=== PATIENT | male | born 1945 | race Caucasian/White ===

== ENCOUNTER 2016-09-12 12:33 | Inpatient (IN) | payer OTHER ==
[2016-09-12] MEDS ORDERED: Sodium Chloride 0.9% 1,000 ML PRIMARY IV ONE ×2 (12:39→15:49)
[2016-09-12] MEDS ORDERED: NORMAL SALINE 10 ML SYRINGE FLUSH IVP PRN ×2 (12:39→15:49)
--- NOTE | 2016-09-12 12:43 | EKG ---
[address] [address] Measurements Intervals [place] Rate: 113 P: 40 KS: 143 QRS: -2 QRSD: 93 T: 59 QT: 331 QTc: 398 Interpretive Statements SINUS TACHYCARDIA ABNORMAL RHYTHM ECG No previous ECG available for comparison Electronically Signed On 09-12-16 15:31:31 MDT by Albert Blevins [email or web address]
[2016-09-12 12:49] LABS: HEMATOCRIT 44.9 % (42.0-52.0); HEMOGLOBIN 14.4 g/dL (14.0-18.0); MEAN CORPUSCULAR HEMOGLOBIN 27.4 PG (27-31); MEAN CORPUSCULAR HGB CONC 32.1 g/dL (33-37); MEAN CORPUSCULAR VOLUME 85.4 FL (80-90); MEAN PLATELET VOLUME 11.3 FL (7.4-12.2); RED BLOOD COUNT 5.26 10^6/uL (4.70-6.10)
--- NOTE | 2016-09-12 12:58 | PDOC ---
General Adult HPI - General Chief Complaint: Neurological Complaints Stated Complaint: SEIZURE, CHEST PAIN Date Seen by Provider: 09/12/16 Time Seen by Provider: 12:35 Source: POSITIVE: Patient, EMS Exam Limitations: POSITIVE: No limitations Nurse's Notes Reviewed & Considered: Yes EMS Report Reviewed & Considered: Verbal - History of Present Illness Initial Comment: The patient is a 76-year-old male who is brought to the emergency department by ambulance after having had a seizure. The patient is from [place] and is currently traveling through. [place] when his stated that she looked over and he was slumped down on the ground having what his thought might be seizure activity. This lasted for approximately one or 2 minutes and then the patient was confused. EMS was called and when they arrived the patient was postictal and having a difficult time answering questions. He seemed a little bit combative as well. He was given a half a milligram of Ativan. He did start at one point to complain of some chest pain and a 12-lead EKG was done showing sinus tachycardia with a rate in the 120s and possibly some ST depression in the inferior leads as well as be 3 through V5. He was given aspirin per chest pain protocol as well as Zofran 4 mg for nausea. On arrival the patient is awake and answering questions appropriately. He stated that he remembers hiking and starting to feel lightheaded and feeling like he was going to black out. That is the last thing that he remembers. He denies any current headache, chest pain, numbness or weakness in his arms or legs or change in vision. His states that he has been having some problems with left-sided headache which is not too unusual for him. He has also had some sinus congestion and dizziness that they were attributing to allergies. He reports that he's been having some trouble hearing from his left ear and has been using some eardrops. He did have some indigestion either last night or this morning and took some [place]. He does not have any known history of heart disease. He does take medication for high cholesterol and GERD. He does not use tobacco or alcohol. He does have a history of sleep apnea. He has had no prior seizure history. When EMS first arrived on scene he was fairly tachycardic with a heart rate in the 150s and his oxygen saturations were in the low 90s on room air. He was given a 1 L bolus of normal saline as well as the medications above and his heart rate was coming down in route. After administration of Ativan he was placed on oxygen per nasal cannula. Have you received a tetanus shot in the past 10 years?: Unknown - Patient Home Medications Home Medications: Home Medications Aspirin [Patti Advanced] 500 mg PO PRN PRN 09/12/16 Aspirin/Sod Bicarb/Citric Acid [[place] Original Tab Eff] 1 each PO PRN PRN 09/12/16 Atorvastatin Calcium 20 mg PO DAILY 09/12/16 Dimenhydrinate [Dramamine] 50 mg PO PRN PRN 09/12/16 Diphenhydra/Phenyleph/Acetamin [Benadryl Allergy-Sinus Cplt] 1 each PO PRN PRN 09/12/16 Fluticasone Nasal [place] 0.05% [Flonase Nasal [place] 0.05%] 1 sprays NASAL DAILY 09/12/16 Omeprazole Magnesium 20 mg PO DAILY 09/12/16 Tamsulosin HCl [Flomax] 0.4 mg PO DAILY 09/12/16 - Patient Allergies Allergies/Adverse Reactions: Allergies Allergy/AdvReac Type Severity Reaction Status Date / Time codeine Allergy ITCHING Verified 09/12/16 12:49 Past Medical History Past Medical History Reviewed: Other (please comment) (Written nursing documentation reviewed, pertinent history is in HPI) ROS - Limitations ROS Limitations: No Limitations Constitution: DENIES: Chills, Fever Cardiovascular: REPORTS: Chest Pain (He did report chest pain to the EMS in route however denies current pain.). DENIES: Heart Palpitations, Edema Respiratory: REPORTS: Shortness Of Breath. DENIES: Cough Non Productive, Cough Productive, Hurts To Breathe Neurological: REPORTS: Dizziness (He has been having some dizziness the past couple of days). DENIES: Headache (Denies current headache however had a left- sided headache earlier this morning and took some aspirin, his states he has fairly frequent headaches), Numbness, Weakness Gastrointestinal: REPORTS: Nausea (He did have nausea and was given Zofran per EMS, denies current nausea). DENIES: Abdominal Pain, Vomitting Musculoskeletal: DENIES: Calf Pain, Lower Extremity Swelling Eyes: REPORTS: Denies Symptoms ENT: REPORTS: Denies Symptoms, Congestion Skin: DENIES: Rash General Adult Exam - General Appearance General Appearance: POSITIVE: Alert, Cooperative, No Acute Distress - HEENT HEENT: POSITIVE: Head Inspection Nml, Eyes Inspection Nml, Ears Inspection Nml, Pharynx Inspect. 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 CTA of the chest reveals no evidence of PE, some dependent atelectasis, no coronary calcifications or other abnormalities per radiologist. Lab Results Reviewed: Yes Lab Results:: Laboratory Results 09/12/16 09/12/16 Range/Units 12:44 13:22 WBC 16.26 H (4.8-10.8) 10^3/uL RBC 5.26 (4.70-6.10) 10^6/uL Hgb 14.4 (14.0-18.0) g/dL Hct 44.9 (42.0-52.0) % MCV 85.4 (80-90) FL MCH 27.4 (27-31) PG MCHC 32.1 L (33-37) g/dL RDW Std Deviation 41.0 (39-50) fL RDW Coeff of Sammy 13.2 (11.5-14.5) % Plt Count 258 (140-350) 10*3/uL MPV 11.3 (7.4-12.2) FL Neutrophils % (Manual) 22 L (50-80) % Band Neutrophils % 2 (0-10) % Lymphocytes % (Manual) 67 H (10-50) % Monocytes % (Manual) 9 (0-12) % Eosinophils % (Manual) 0 (0-8) % Basophils % (Manual) 0 (0-1) % Metamyelocytes % 0 % Myelocytes % 0 % Promyelocytes % 0 % Blast Cells 0 (0-1) % WBC Morphology Comment See comments (NORM) Plt Morphology Comment Normal morphology (NORM) RBC Morph Comment Normal morphology (NORM) D-Dimer 7.48 H (0.00-0.59) mg/L Sodium 147 H (135-145) meq/L Potassium 2.9 L (3.8-5.2) meq/L Chloride 105 (98-112) meq/L Carbon Dioxide 10 L (23-33) meq/L Anion Gap 32 H (5-20) BUN 11 (7-22) mg/dL Creatinine 1.4 (0.70-1.50) mg/dL Estimated GFR (>60 ml/min/1.73m(2)) BUN/Creatinine Ratio 7.85 (6-20) Glucose 151 H (78-110) mg/dL Calculated Osmolality 305.0 H (267-292) mOsm/kg Calcium 9.0 (8.7-10.7) mg/dL Magnesium 2.3 (1.6-2.4) mg/dL Total Bilirubin 0.5 (0.3-1.2) mg/dL AST 57 (21-57) IU/L ALT 56 (21-72) IU/L Alkaline Phosphatase 112 (38-126) IU/L Total Creatine Kinase 93 (55-170) IU/L CK-MB (CK-2) 0.71 (0.00-5.00) NG/ML Troponin I < 0.012 (< 0.040) ng/mL C-Reactive Protein < 0.5 (0.0-0.9) mg/dL NT-Pro-B Natriuret Pep 29.6 (0-450) PG/ML Total Protein 7.8 (6.1-8.0) g/dL Albumin 4.9 H (3.5-4.8) g/dL Globulin 2.9 (2.50-4.10) g/dL Albumin/Globulin Ratio 1.60 (1.3-2.0) mg/g TSH 4.80 H (0.2700-4.2000) uIU/mL Free T4 1.04 (0.93-1.71) ng/dL EKG Interpreted/Reviewed By Me:: Yes EKG Interpretation:: POSITIVE: Normal Sinus Rhythm, Normal Rate, Normal QRS, Normal ST/T (There is some mild ST depression in V3 through V5 which is less prominent than on the field EKG and no ST depression or elevation in the inferior leads on current EKG, no old EKGs available for comparison) - Patient's Progress MDM / ED Course: By the time the patient arrived here in the emergency department he was feeling significantly better than when EMS first arrived. He continued to improve while here in the emergency department. He remained asymptomatic other than some dizziness when he moves around. His EKG done here showed a normal sinus rhythm with nonspecific ST depression in V3 through V5 which appeared to have improved from his EKG in the field. He had received aspirin and Zofran per EMS prior to arrival as well as Ativan 0.5 mg IV. His lab work reveals some electrolyte abnormalities with a sodium of 147 and a potassium of 2.9. He also has a lymphocytosis and a white count of 16,000. His d-dimer was elevated at 7.5. Head CT shows small vessel ischemic changes with no acute findings per radiologist. His CTA of the chest reveals no evidence of PE with dependent atelectasis and no other findings per radiologist. At this point it is questionable whether the patient had a seizure or whether he actually just had a syncopal event. It seems most likely that this is a syncope rather than seizure. The patient does exhibit some electrolyte abnormalities and has improved after administration of fluids here in the emergency department. Decision was made to admit the patient for further monitoring. The patient and his are in agreement with this plan and Dr. Crain has agreed to admit the patient. - Consult Counseled: POSITIVE: Patient, Family, RE: Lab Results, RE: Radiology Results, RE : DX Patient Care Time - Estimated PCT Patient Care Time (In Minutes): 45 Vital Signs - Recent Vital Signs Vital Signs: Vital Signs (Last 8 hours) Temp Pulse Pulse Resp BP Pulse Ox 09/12/16 14:29 97.2 F 09/12/16 13:07 110 H 09/12/16 12:44 113 H 09/12/16 12:33 97.3 F 110 H 17 119/67 90 - VS Reviewed Vital Signs Reviewed: Yes Discharge Clinical Impression: Syncope, Dehydration, Hypernatremia, Hypokalemia Discharge Disposition: Admit to Inpatient Condition: Fair Date Decision to Admit to Inpatient: 09/12/16 Time Decision to Admit to Inpatient: 14:25
[2016-09-12 13:00] LABS: BUN/CREATININE RATIO 7.85 (6-20); MAGNESIUM 2.3 mg/dL (1.6-2.4); SERUM ALBUMIN 4.9 g/dL (3.5-4.8)
[2016-09-12 13:11] LABS: CREATINE KINASE MB 0.71 NG/ML (0.00-5.00)
[2016-09-12 13:12] LABS: TROPONIN I < 0.012 ng/mL (< 0.040)
[2016-09-12 13:21] LABS: PLATELET MORPHOLOGY COMMENT NORMAL MORPHOLOGY (NORM); RBC MORPHOLOGY COMMENT NORMAL MORPHOLOGY (NORM)
[2016-09-12 13:22] LABS: BAND NEUTROPHILS % 2 % (0-10); BASOPHILS % (MANUAL) 0 % (0-1); EOSINOPHILS % (MANUAL) 0 % (0-8); LYMPHOCYTES % (MANUAL) 67 % (10-50); METAMYELOCYTES % 0 %; MONOCYTES % (MANUAL) 9 % (0-12); MYELOCYTES % 0 %; NEUTROPHILS % (MANUAL) 22 % (50-80); PROMYELOCYTES % 0 %; WBC MORPHOLOGY COMMENT SEE COMMENTS (NORM)
[2016-09-12 13:59] LABS: FREE T4 (FREE THYROXINE) 1.04 ng/dL (0.93-1.71)
--- NOTE | 2016-09-12 14:26 | DI ---
CT HEAD SCAN WITHOUT IV CONTRAST, 09/12/2016 12:40 PM : Clinical History: Seizure. Previous Exam: None at this facility. Scans are obtained from the foramen magnum to the vertex without IV contrast. The 4th, 3rd, and lateral ventricles are of normal size, shape, position, and contour for the patient 's age. There are lucencies through the inferior aspect of both basal ganglia with additional lucenci es extending superiorly into the periventricular white matter in the watershed territory, probably re presenting small vessel ischemic change although the usual periventricular white matter lucencies in the frontal and occipital horns is not present. There is only mild cerebral atrophy. There are no ext racerebral mantles or shift of the midline structures. Bone window evaluation is normal. The paranasa l sinuses are normal. READIN. There are bilateral lucencies in the centrum semiovale and toward the inferior aspect of both bas al ganglia probably representing small vessel ischemic disease. There is no hemorrhagic or bland infa rct. 2. Mild cerebral atrophy.
[2016-09-12] MEDS ORDERED: D5-1/2NS + 20mEq KCL 1,000 ML PRIMARY IV ONE (14:29)
--- NOTE | 2016-09-12 14:44 | DI ---
CT ANGIOGRAM OF THE CHEST, 09/12/2016 1:18 PM : Clinical History: Chest pain. Shortness of breath. Elevated D-dimer test. This history was related to me by the attending ER physician. Previous Exam: None at this facility. Scans are performed from the base of the neck to the lower lung bases following IV administration of 65 mL of Isovue 300. Proprietary automated bolus tracking software was not used to verify the timing of the injection. The base of the neck and thoracic inlet are normal. There are no abnormal axillary, supraclavicular, mediastinal, or hilar nodes. The heart is normal. The pulmonary arteries are normal. There is no pulm onary arterial hypertension. There is no evidence of pulmonary embolism or pulmonary infarction. The lungs are clear and there are no pulmonary nodules or masses. Both lungs show atelectatic changes in the dependent portions posteriorly. Both adrenal glands and the spleen and visualized portions of the liver and pancreas are normal. READIN. Normal CTA of the chest. There are no pulmonary emboli or pulmonary infarcts. 2. The remainder the study is normal.
[2016-09-12] MEDS ORDERED: cefTRIAXone Inj 2 GM in Sodium Chloride 0.9% 100 ML IV SCH (15:45)
--- NOTE | 2016-09-12 15:48 | PDOC ---
History and Physical - History of Present Illness History of Present Illness: This very nice 76-year-old gentleman past medical history significant for frequent sinus infections. Traveling from [place] the left Monday they made it to [place] the patient was experiencing some dizziness at that time improved. Then drove to [place] Monday still have a more dizziness and the he blames on his sinus infection since it is painful on his left maxillary sinus. Then drove to [facility] in [place] around noon get out of the [place] felt dizzy with the flashes and then had a syncopal episode ambulance was called. This was witnessed by the patient did not have any chest pain or shortness of breath before he passed out initially they thought he was having a seizure but this was not the case his total CKs were normal was given a liter bolus in the ER was found to be tachycardic and is now much better upon my evaluation. Was also found to be dehydrated and with electrolyte imbalance and admitted for further studies Past Medical History Medical History: Chronic sinus infection, hypercholesterolemia, GERD Tobacco Use: Never Smoker Substance Use Type: None Alcohol Use: None Medication / Allergies Home Medications: Home Medications Medication Instructions Recorded Confirmed Type Aspirin [Patti Advanced] 500 mg PO PRN PRN 09/12/16 09/12/16 History Aspirin/Sod Bicarb/Citric Acid 1 each PO PRN PRN 09/12/16 09/12/16 History [Alena-[place] Original Tab Eff] Atorvastatin Calcium 20 mg PO DAILY 09/12/16 09/12/16 History Dimenhydrinate [Dramamine] 50 mg PO PRN PRN 09/12/16 09/12/16 History Diphenhydra/Phenyleph/Acetamin 1 each PO PRN PRN 09/12/16 09/12/16 History [Benadryl Allergy-Sinus Cplt] Fluticasone Nasal [place] 0.05% 1 sprays NASAL DAILY 09/12/16 09/12/16 History [Flonase Nasal [place] 0.05%] Omeprazole Magnesium 20 mg PO DAILY 09/12/16 09/12/16 History Tamsulosin HCl [Flomax] 0.4 mg PO DAILY 09/12/16 09/12/16 History Allergies/Adverse Reactions: Allergies Allergy/AdvReac Type Severity Reaction Status Date / Time codeine Allergy ITCHING Verified 09/12/16 12:49 Review of Systems - Review of Systems All Systems: Reviewed & No Additional Complaints Except as Stated - Constitutional Constitutional: REPORTS: General Health Fair - Integumentary Integumentary: DENIES: Negative System Review, Rash, Superficial Wound, Laceration, Puncture Wound, Foreign Body, Itching, Dryness, Ulcers, Color Changes, Moles, Hair Loss, Hirsutism, Other, See HPI - Ear/Nose Exam Ear/Nose Exam: REPORTS: Sinus Pain, Congestion - Cardiovascular Cardiovascular: DENIES: Negative System Review, Chest Pain, Edema, Syncope, Palpitations, Orthopnea, Paroxysmal Nocturnal Dyspnea, Other, See HPI - Gastrointestinal Gastrointestinal / Abdominal: DENIES: Negative System Review, Nausea, Vomiting, Diarrhea, Constipation, Abdominal Pain, Bloody Stool, Poor Appetite, Heartburn, Regurgitation, Bloating, Lactose Intolerance, Melena, Bright Red Blood Per Rectum, Other, See HPI - Neurological Neurologic: REPORTS: Dizziness Exam - Vitals Vital Signs: Vital Signs Temperature 97.2 F Temperature Source Temporal Artery Scan Pulse Rate [Telemetry] 110 Pulse Rate 110 Respiratory Rate 17 Blood Pressure [Left Arm] 119/67 Pulse Ox 90 Oxygen Flow Rate 2 Oxygen Delivery Method Nasal Cannula Height 5 ft 6 in Weight 63.503 kg - General General Appearance: POSITIVE: No Acute Distress, Cooperative - Head Head Exam: POSITIVE: Normal Inspection, Normocephalic, Atraumatic - Eye Eye Exam: POSITIVE: Normal Appearance, PERRL, EOMI - Respiratory Respiratory Exam: POSITIVE: Clear to Auscultation - Bilaterally, Breathing Non Labored. NEGATIVE: Rales, Rhonci - Cardiovascular Cardiovascular Exam: POSITIVE: RRR, No Murmur, No Clicks, No Gallops - GI/Abdominal GI/Abdominal Exam: POSITIVE: Normal Bowel Sounds, Non Tender, Non Distended, Soft - Extremities Extremities Exam: POSITIVE: Normal Capillary Refill, No Clubbing Present, No Edema Present - Neurological Neurological Exam: POSITIVE: Alert, Oriented x 3, No Facial Droop, Speech Intact / Clear - Psychiatric Psychiatric Exam: POSITIVE: Normal Affect, Normal Mood Results - Labs CBC and BMP: 09/12/16 12:44 09/12/16 12:44 Labs - Last 24 Hours: Laboratory Results 09/12/16 09/12/16 Range/Units 12:44 13:22 WBC 16.26 H (4.8-10.8) 10^3/uL RBC 5.26 (4.70-6.10) 10^6/uL Hgb 14.4 (14.0-18.0) g/dL Hct 44.9 (42.0-52.0) % MCV 85.4 (80-90) FL MCH 27.4 (27-31) PG MCHC 32.1 L (33-37) g/dL RDW Std Deviation 41.0 (39-50) fL RDW Coeff of Sammy 13.2 (11.5-14.5) % Plt Count 258 (140-350) 10*3/uL MPV 11.3 (7.4-12.2) FL Neutrophils % (Manual) 22 L (50-80) % Band Neutrophils % 2 (0-10) % Lymphocytes % (Manual) 67 H (10-50) % Monocytes % (Manual) 9 (0-12) % Eosinophils % (Manual) 0 (0-8) % Basophils % (Manual) 0 (0-1) % Metamyelocytes % 0 % Myelocytes % 0 % Promyelocytes % 0 % Blast Cells 0 (0-1) % WBC Morphology Comment See comments (NORM) Plt Morphology Comment Normal morphology (NORM) RBC Morph Comment Normal morphology (NORM) D-Dimer 7.48 H (0.00-0.59) mg/L Sodium 147 H (135-145) meq/L Potassium 2.9 L (3.8-5.2) meq/L Chloride 105 (98-112) meq/L Carbon Dioxide 10 L (23-33) meq/L Anion Gap 32 H (5-20) BUN 11 (7-22) mg/dL Creatinine 1.4 (0.70-1.50) mg/dL Estimated GFR (>60 ml/min/1.73m(2)) BUN/Creatinine Ratio 7.85 (6-20) Glucose 151 H (78-110) mg/dL Calculated Osmolality 305.0 H (267-292) mOsm/kg Calcium 9.0 (8.7-10.7) mg/dL Magnesium 2.3 (1.6-2.4) mg/dL Total Bilirubin 0.5 (0.3-1.2) mg/dL AST 57 (21-57) IU/L ALT 56 (21-72) IU/L Alkaline Phosphatase 112 (38-126) IU/L Total Creatine Kinase 93 (55-170) IU/L CK-MB (CK-2) 0.71 (0.00-5.00) NG/ML Troponin I < 0.012 (< 0.040) ng/mL C-Reactive Protein < 0.5 (0.0-0.9) mg/dL NT-Pro-B Natriuret Pep 29.6 (0-450) PG/ML Total Protein 7.8 (6.1-8.0) g/dL Albumin 4.9 H (3.5-4.8) g/dL Globulin 2.9 (2.50-4.10) g/dL Albumin/Globulin Ratio 1.60 (1.3-2.0) mg/g TSH 4.80 H (0.2700-4.2000) uIU/mL Free T4 1.04 (0.93-1.71) ng/dL Assessment and Plan - Patient Problems (1) Dehydration Status: Acute (2) Hypernatremia Status: Acute (3) Hypokalemia Status: Acute (4) Syncope Status: Acute - Assessment / Plan Additional Assessment/Plan Details: We will admit the patient to the medical floor we will hydrated with D5 half- normal saline we will repeat a CMP at that 9 PM his first 2 hours will be at 250 an hour and will schedule back to 75 an hour repeat labs in the morning as well because of his sinus pressure on the left maxillary sinus I will treat with Rocephin this could be all the cause of his syncopal episode and dizziness combined with dehydration and electrolyte imbalance I did tell the patient that we should do an echo for completeness of workup but this cannot be done until Monday morning since we don't have a tech at the facility he tends to agree but he said he will see how he feels tomorrow. Continue potassium replacement as well I will also check a magnesium level and replace if necessary
[2016-09-12] MEDS ORDERED: D5-1/2NS 1,000 ML PRIMARY IV SCH (15:49)
[2016-09-12] MEDS ORDERED: ONDANSETRON 4 MG/2 ML VIAL IVP PRN (15:49)
[2016-09-12] MEDS ORDERED: LIDOCAINE W/ SODIUM BICARB 0.5 ML SYR SUBD PRN (15:49)
[2016-09-12] MEDS ORDERED: ASPIRIN 500 MG PO PRN (15:49)
[2016-09-12 19:08] LABS: BLOOD UREA NITROGEN 8 mg/dL (7-22); BUN/CREATININE RATIO 8.88 (6-20); CALCIUM 7.6 mg/dL (8.7-10.7); EST GLOMERULAR FILTRATION > 60 (>60 ml/min/1.73m(2)); SERUM ALBUMIN 3.2 g/dL (3.5-4.8)
[2016-09-12] MEDS: ATORVASTATIN 20 MG TABLET PO SCH (20:44)
[2016-09-12] MEDS: TAMSULOSIN 0.4 MG CAPSULE PO SCH (20:44)
[2016-09-12] MEDS: D5W 1,000 ML PRIMARY IV SCH (22:36)
[2016-09-13] MEDS: D5W 1,000 ML PRIMARY IV SCH ×5 (00:49→09:52)
[2016-09-13 04:25] LABS: BASOPHILS # (AUTO) 0.04 10*3/UL; BASOPHILS % (AUTO) 0.7 % (0-1); EOSINOPHILS # (AUTO) 0.06 10*3/UL; HEMATOCRIT 35.6 % (42.0-52.0); HEMOGLOBIN 11.7 g/dL (14.0-18.0); MEAN CORPUSCULAR HEMOGLOBIN 27.2 PG (27-31); MEAN CORPUSCULAR HGB CONC 32.9 g/dL (33-37); MEAN CORPUSCULAR VOLUME 82.8 FL (80-90); MEAN PLATELET VOLUME 10.2 FL (7.4-12.2); MONOCYTES # (AUTO) 0.69 10*3/UL (0.3-0.8); MONOCYTES % (AUTO) 11.9 % (5-15); NEUTROPHILS # (AUTO) 3.51 10*3/UL; NEUTROPHILS % (AUTO) 60.3 % (50-80)
[2016-09-13 04:32] LABS: BLOOD UREA NITROGEN 6 mg/dL (7-22); CALCIUM 7.8 mg/dL (8.7-10.7); EST GLOMERULAR FILTRATION > 60 (>60 ml/min/1.73m(2))
[2016-09-13 04:38] LABS: PLATELET MORPHOLOGY COMMENT NORMAL MORPHOLOGY (NORM); RBC MORPHOLOGY COMMENT NORMAL MORPHOLOGY (NORM); WBC MORPHOLOGY COMMENT NORMAL MORPHOLOGY (NORM)
[2016-09-13] MEDS: OMEPRAZOLE 20 MG CAPSULE PO SCH (07:25)
[2016-09-13] MEDS: POTASSIUM CHLORIDE 20 MEQ TAB PO SCH ×2 (09:07→20:28)
[2016-09-13] MEDS: FLUTICASONE PROPIONATE 16 GRAM (120 SPRAYS / BOTTLE) ENOS SCH (09:07)
[2016-09-13] MEDS: ENOXAPARIN SODIUM 40 MG/0.4 ML SYRINGE SUBCUT SCH (09:07)
--- NOTE | 2016-09-13 10:30 | PDOC(PROG) ---
Interval History: Patient is doing much better this morning he still achy specifically and is between his cervical spine and thoracic spine he has some point tenderness when he fell yesterday with [place] syncopal episode [place] he thinks he might have hit it but does not remember. He will like to have it checked out and looked that I told him I would order MRIs of his thoracic and cervical spine for disc herniation which would be hard to see on x-ray he agrees. What is bothering him now as his sinuses which we are treating with Rocephin. Otherwise denies chest pain nausea and vomiting Objective : Data - Labs CBC and BMP: 09/13/16 04:13 09/13/16 04:13 Labs - Last 24 Hours: Laboratory Results 09/12/16 09/12/16 09/13/16 Range/Units 15:41 18:56 04:13 WBC 5.82 (4.8-10.8) 10^3/uL RBC 4.30 L (4.70-6.10) 10^6/uL Hgb 11.7 L (14.0-18.0) g/dL Hct 35.6 L (42.0-52.0) % MCV 82.8 (80-90) FL MCH 27.2 (27-31) PG MCHC 32.9 L (33-37) g/dL RDW Std Deviation 39.2 (39-50) fL RDW Coeff of Sammy 13.3 (11.5-14.5) % Plt Count 172 (140-350) 10*3/uL MPV 10.2 (7.4-12.2) FL Immature Gran % (Auto) 0.3 (0-5) % Neut % (Auto) 60.3 (50-80) % Lymph % (Auto) 25.8 (10-50) % [place] % (Auto) 11.9 (5-15) % Eos % (Auto) 1.0 (0-8) % Baso % (Auto) 0.7 (0-1) % Immature Gran # (Auto) 0.02 10*3/UL Neut # (Auto) 3.51 10*3/UL Lymph # (Auto) 1.50 10*3/uL [place] # (Auto) 0.69 (0.3-0.8) 10*3/UL Eos # (Auto) 0.06 10*3/UL Baso # (Auto) 0.04 10*3/UL WBC Morphology Comment Normal morphology (NORM) Plt Morphology Comment Normal morphology (NORM) RBC Morph Comment Normal morphology (NORM) Sodium 139 138 (135-145) meq/L Potassium 3.7 L 3.6 L (3.8-5.2) meq/L Chloride 108 107 (98-112) meq/L Carbon Dioxide 24 25 (23-33) meq/L Anion Gap 7 6 (5-20) BUN 8 6 L (7-22) mg/dL Creatinine 0.9 0.8 (0.70-1.50) mg/dL Estimated GFR > 60 > 60 (>60 ml/min/1.73m(2)) BUN/Creatinine Ratio 8.88 7.50 (6-20) Glucose 166 H 101 (78-110) mg/dL Calculated Osmolality 289.0 283.0 (267-292) mOsm/kg Calcium 7.6 L 7.8 L (8.7-10.7) mg/dL Magnesium 2.2 (1.6-2.4) mg/dL Total Bilirubin 0.2 L (0.3-1.2) mg/dL AST 26 (21-57) IU/L ALT 48 (21-72) IU/L Alkaline Phosphatase 71 (38-126) IU/L Total Protein 5.5 L (6.1-8.0) g/dL Albumin 3.2 L (3.5-4.8) g/dL Globulin 2.3 L (2.50-4.10) g/dL Albumin/Globulin Ratio 1.30 (1.3-2.0) mg/g Objective : Exam - General General Appearance: Cooperative - Head Head Exam: Normal Inspection, Normocephalic, Atraumatic - Eye Eye Exam: PERRL, EOMI - Respiratory Respiratory Exam: Clear to Auscultation - Bilaterally, Breathing Non Labored, Normal To Percussion, Normal to Percussion and Palpation - Cardiovascular Cardiovascular Exam: RRR, No Murmur, No Clicks, No Gallops - GI/Abdominal GI/Abdominal Exam: Non Tender, Non Distended, Soft - Extremities Extremities Exam: No Clubbing Present, No Edema Present - Back Back Exam: Vertebral Tenderness - Neurological Neurological Exam: Alert, Oriented x 3, No Facial Droop, Speech Intact / Clear, Moves All Extremities Equally - Psychiatric Psychiatric Exam: Normal Affect, Normal Mood Assessment and Plan - Patient Problems (1) Dehydration Current Visit: Yes Status: Acute Comment: Improved off IV fluids now (2) Hypernatremia Current Visit: Yes Status: Acute Comment: Resolved patient received the 2 hours of D5 half-normal saline and then 75 an hour and then stopped this a.m. with potassium (3) Hypokalemia Current Visit: Yes Status: Acute Comment: Resolving continue with by mouth (4) Syncope Current Visit: Yes Status: Acute Comment: No further syncopal episodes no telemetry changes (5) Neck pain Current Visit: Yes Status: Acute Comment: Patient sustained a fall yesterday at [employer] on the rocks he has some point tenderness on his thoracic spine we will order MRIs of cervical and thoracic spine
[2016-09-13] MEDS ORDERED: LORazepam 2 MG/1 ML VIAL IVP ONE (11:52)
[2016-09-13] MEDS ORDERED: LORazepam 2 MG/1 ML VIAL ONE (11:54)
--- NOTE | 2016-09-13 14:33 | DI ---
MRI THORACIC SPINE SCAN, 09/13/2016 10:24 AM: Clinical History: Thoracic back pain secondary to a fall. Previous Exam: None. Technique: Sagittal T1 and T2 weighted and STIR scans are supplemented with an axial angulated T1 and T2 weighted scans between the C7-T1 and the T12-L1 disc spaces. There is a sharp angulation along the anterior aspect of the body of T3 and there is anterior wedging primarily involving the superior endplate of the body of T5. Both of these areas show increased sign al intensity indicating they represent acute or subacute compression fractures. There is no extension of activity into the pedicles at T3. There is slight increased signal intensity in the left pedicle at T5. No other abnormal bone signal pattern is noted. The thoracic disc spaces are of normal height and the disc spaces between T2-T3 and T6-7 are of normal signal intensity in the remaining disc space s show desiccation change. The thoracic cord and the conus medullaris are normal. The disc spaces bet ween and T3-4 are normal. T4-5 has a midline disc bulge without canal or neural foraminal stenosis. T he remaining thoracic disc spaces from T5-6 to T12-L1 are normal. There are no other extradural lesio ns. There are no intradural extramedullary or intramedullary lesions. Readin. There are either acute or subacute compression fractures of T3 and T5 with a nondisplaced fractur e through the left pedicle of T5. The disc space at T4-5 has a midline focal bulge but there is no ca nal or neural foraminal stenosis. 2. The disc spaces from C7-T1 through T3-4 and from T5-6 through T12-L1 are normal.
--- NOTE | 2016-09-13 14:37 | DI ---
MRI CERVICAL SPINE SCAN, 09/13/2016 10:24 AM: Clinical History: Neck pain secondary to a fall. Previous Exam: None. Sequences: Sagittal T1and T2 weighted and STIR. Axial T2 PLUS and FE 3D DUAL. Coronal T1 scans throug h the upper cervical spine. The patient is status post anterior fusions at C4-5 and C5-6 and both fusions are solid. The remainin g cervical vertebral bodies are of normal height and size. The remaining cervical disc spaces are of normal height and show desiccation change. The cervical cord and cerebellar tonsils are normal. The C 2-3 disc space is normal. C3-4 has a central bulging but not herniated disc without canal or neural f oraminal stenosis. There is no canal or neural foraminal stenosis at the level of C4-5 and C5-6 where the fusions are present. C6-7 has a central bulging but not herniated disc without canal or neural f oraminal stenosis. C7-T1 through T3-4 disc spaces are normal. There is no abnormally increased signal intensity on the T2-weighted or STIR sequences to indicate a fracture in the cervical spine. There i s slight increased signal intensity in the superior endplate of T3 with slight angulation anteriorly in the body. This would be consistent with a compression fracture that is either acute or subacute. Readin. There is a compression fracture at T3 involving the superior endplate that either is acute or sub acute. There is loss of height less than 10%. 2. Status post anterior fusions at C4-5 and C5-6 and these fusions are solid. There is no canal or n eural foraminal stenosis at either level. 3. C3-4 and C6-7 have bulging but not herniated discs without canal or neural foraminal stenosis. 4. The C2-3 and the C7-T1 through T3-4 disc spaces are normal.
[2016-09-13] MEDS: cefTRIAXone Inj 2 GM in Sodium Chloride 0.9% 100 ML IV SCH (16:17)
[2016-09-13] MEDS: ATORVASTATIN 20 MG TABLET PO SCH (20:28)
[2016-09-13] MEDS: TAMSULOSIN 0.4 MG CAPSULE PO SCH (20:28)
[2016-09-14] MEDS: OMEPRAZOLE 20 MG CAPSULE PO SCH (07:00)
[2016-09-14] MEDS: ENOXAPARIN SODIUM 40 MG/0.4 ML SYRINGE SUBCUT SCH (09:05)
[2016-09-14] MEDS: POTASSIUM CHLORIDE 20 MEQ TAB PO SCH ×2 (09:05→21:33)
[2016-09-14] MEDS: FLUTICASONE PROPIONATE 16 GRAM (120 SPRAYS / BOTTLE) ENOS SCH (09:05)
[2016-09-14 10:21] LABS: BLOOD UREA NITROGEN 11 mg/dL (7-22); CALCIUM 8.9 mg/dL (8.7-10.7); EST GLOMERULAR FILTRATION > 60 (>60 ml/min/1.73m(2)); SERUM ALBUMIN 3.6 g/dL (3.5-4.8)
--- NOTE | 2016-09-14 11:10 | PDOC(PROG) ---
Interval History: Patient is feeling much better today things have improved much feels stronger and eating and drinking. Drinking appropriately this left sinus pressure is less had his echo this morning does not feel dizzy no nausea no vomiting no chest pain his back pain is improved as well Objective : Data - Labs CBC and BMP: 09/13/16 04:13 09/14/16 09:22 Labs - Last 24 Hours: Laboratory Results 09/14/16 Range/Units 09:22 Sodium 140 (135-145) meq/L Potassium 3.9 (3.8-5.2) meq/L Chloride 105 (98-112) meq/L Carbon Dioxide 27 (23-33) meq/L Anion Gap 8 (5-20) BUN 11 (7-22) mg/dL Creatinine 1.0 (0.70-1.50) mg/dL Estimated GFR > 60 (>60 ml/min/1.73m(2)) BUN/Creatinine Ratio 11.00 (6-20) Glucose 103 (78-110) mg/dL Calculated Osmolality 288.0 (267-292) mOsm/kg Calcium 8.9 (8.7-10.7) mg/dL Total Bilirubin 0.6 (0.3-1.2) mg/dL AST 34 (21-57) IU/L ALT 53 (21-72) IU/L Alkaline Phosphatase 96 (38-126) IU/L Total Protein 6.1 (6.1-8.0) g/dL Albumin 3.6 (3.5-4.8) g/dL Globulin 2.5 (2.50-4.10) g/dL Albumin/Globulin Ratio 1.40 (1.3-2.0) mg/g Objective : Exam - General General Appearance: Cooperative - Head Head Exam: Normal Inspection, Normocephalic, Atraumatic - Eye Eye Exam: Normal Appearance Additional Eye Exam Details: Less painful left maxillary sinus - Respiratory Respiratory Exam: Clear to Auscultation - Bilaterally, Breathing Non Labored, Normal To Percussion, Normal to Percussion and Palpation - Cardiovascular Cardiovascular Exam: RRR, No Murmur, No Clicks, No Gallops - GI/Abdominal GI/Abdominal Exam: Non Distended, Soft - Extremities Extremities Exam: No Clubbing Present, No Edema Present - Neurological Neurological Exam: Alert, Oriented x 3, No Facial Droop, Speech Intact / Clear, Moves All Extremities Equally - Psychiatric Psychiatric Exam: Normal Affect, Normal Mood Assessment and Plan - Patient Problems (1) Dehydration Current Visit: Yes Status: Resolved Comment: Resolved (2) Hypernatremia Current Visit: Yes Status: Acute Comment: Within normal limits now (3) Hypokalemia Current Visit: Yes Status: Resolved (4) Syncope Current Visit: Yes Status: Resolved Comment: Most likely a combination of dehydration and electrolyte imbalance imbalance and acute sinus with the high altitude and hiking in the middle of the day with 90 weather most likely vasovagal echo is pending. Patient will stay to get his IV antibiotics tomorrow for 3 days I will give him a prescription for Augmentin 875 twice a day for a total of 10 more days (5) Neck pain Current Visit: Yes Status: Acute Comment: MRI cervical spine MRI thoracic spine were done discussed with neurosurgeon nothing to do Cecil Johnson at [facility] [place]
[2016-09-14] MEDS: cefTRIAXone Inj 2 GM in Sodium Chloride 0.9% 100 ML IV SCH (15:28)
[2016-09-14] MEDS: ATORVASTATIN 20 MG TABLET PO SCH (21:33)
[2016-09-14] MEDS: TAMSULOSIN 0.4 MG CAPSULE PO SCH (21:33)
[2016-09-15] MEDS: OMEPRAZOLE 20 MG CAPSULE PO SCH (06:52)
[2016-09-15 06:56] VITALS: RESP 20; TEMP 97.8
--- NOTE | 2016-09-15 08:50 | DCSUMMARY ---
Hospitalization Summary Admit Date: 09/12/16 Discharge Date: 09/15/16 Hospital Course: Discharge diagnoses 1. Syncope less likely seizure 2. Hypernatremia 3. Hypokalemia 4. Increased anion gap metabolic acidosis 5. History of sinusitis 6. GERD 7. Hypercholesterolemia 8. History of neck surgery Hospital course This is a 71 years old male with medical history significant for history of sinusitis, hypercholesterolemia, GERD who was brought to the hospital after he passed out. The patient is from [place] and was traveling through. He said the he was at [employer] and then he passed out. He did say that he had dizziness and he blamed that on a sinus infection more on the left maxillary sinus also had some trouble hearing on the left ear he took Dramamine. There was no chest pain or shortness of breath before he passed out. The mentioned there may be some movements in both hands but that didn't last long and then he stayed still there was no history of biting his tongue there is no history of losing control over his bowel or bladder. There was a city bailiff in the area they moved him to a shaded area until the medics arrived. Initially he was not with it for a few minutes and then they gave him fluids and they brought him to the ER and he was evaluated and found to have hyponatremia, hypokalemia and increased anion gap metabolic acidosis. CK was normal though. The impression is that he had more like a syncopal episode rather than a seizure. He was giving fluids and started on antibiotics. A CT of the head was negative for acute stroke. Question small vessel ischemic disease. He had a CTA of the chest was negative for PE. Had an MRI of the neck and the thoracic area which showed either acute or subacute compression fractures of T3 and T5 with nondisplaced fracture through the left pedicle of T5. The disc spaces from C7-T1 are normal. With fluids and antibiotics for possible sinusitis he felt gradually better. He did have an echocardiogram which was normal per discussion with the electrical integrator. I saw him on the day of discharge he was doing better and there is no chest pain or no shortness of breath. Still complained from drainage to the back of his throat. Some tenderness in the left maxillary area. He denied history of diarrhea or vomiting prior to the incident. He did say that he had blood test done before he traveled and they were normal. Impression is still that probably this is more like a syncope of than a seizure. I think we can discharge him home finish the course of antibiotic that was started and was put also on Flonase. I discharge him on a few days of potassium also. I do suggest that he follow-up with his primary and consider having a stress test to complete the workup. His exam was not remarkable apart from minimal tenderness in the left maxillary area. Laboratory Results 09/12/16 09/12/16 09/12/16 Range/Units 12:44 13:22 15:41 WBC 16.26 H (4.8-10.8) 10^3/uL RBC 5.26 (4.70-6.10) 10^6/uL Hgb 14.4 (14.0-18.0) g/dL Hct 44.9 (42.0-52.0) % MCV 85.4 (80-90) FL MCH 27.4 (27-31) PG MCHC 32.1 L (33-37) g/dL RDW Std Deviation 41.0 (39-50) fL RDW Coeff of Sammy 13.2 (11.5-14.5) % Plt Count 258 (140-350) 10*3/uL MPV 11.3 (7.4-12.2) FL Immature Gran % (Auto) (0-5) % Neut % (Auto) (50-80) % Lymph % (Auto) (10-50) % Sebastian % (Auto) (5-15) % Eos % (Auto) (0-8) % Baso % (Auto) (0-1) % Immature Gran # (Auto) 10*3/UL Neut # (Auto) 10*3/UL Lymph # (Auto) 10*3/uL Sebastian # (Auto) (0.3-0.8) 10*3/UL Eos # (Auto) 10*3/UL Baso # (Auto) 10*3/UL Neutrophils % (Manual) 22 L (50-80) % Band Neutrophils % 2 (0-10) % Lymphocytes % (Manual) 67 H (10-50) % Monocytes % (Manual) 9 (0-12) % Eosinophils % (Manual) 0 (0-8) % Basophils % (Manual) 0 (0-1) % Metamyelocytes % 0 % Myelocytes % 0 % Promyelocytes % 0 % Blast Cells 0 (0-1) % WBC Morphology Comment See comments (NORM) Plt Morphology Comment Normal morphology (NORM) RBC Morph Comment Normal morphology (NORM) D-Dimer 7.48 H (0.00-0.59) mg/L Sodium 147 H (135-145) meq/L Potassium 2.9 L (3.8-5.2) meq/L Chloride 105 (98-112) meq/L Carbon Dioxide 10 L (23-33) meq/L Anion Gap 32 H (5-20) BUN 11 (7-22) mg/dL Creatinine 1.4 (0.70-1.50) mg/dL Estimated GFR (>60 ml/min/1.73m(2)) BUN/Creatinine Ratio 7.85 (6-20) Glucose 151 H (78-110) mg/dL Calculated Osmolality 305.0 H (267-292) mOsm/kg Calcium 9.0 (8.7-10.7) mg/dL Magnesium 2.3 2.2 (1.6-2.4) mg/dL Total Bilirubin 0.5 (0.3-1.2) mg/dL AST 57 (21-57) IU/L ALT 56 (21-72) IU/L Alkaline Phosphatase 112 (38-126) IU/L Total Creatine Kinase 93 (55-170) IU/L CK-MB (CK-2) 0.71 (0.00-5.00) NG/ML Troponin I < 0.012 (< 0.040) ng/mL C-Reactive Protein < 0.5 (0.0-0.9) mg/dL NT-Pro-B Natriuret Pep 29.6 (0-450) PG/ML Total Protein 7.8 (6.1-8.0) g/dL Albumin 4.9 H (3.5-4.8) g/dL Globulin 2.9 (2.50-4.10) g/dL Albumin/Globulin Ratio 1.60 (1.3-2.0) mg/g TSH 4.80 H (0.2700-4.2000) uIU/mL Free T4 1.04 (0.93-1.71) ng/dL 09/12/16 09/13/16 09/14/16 Range/Units 18:56 04:13 09:22 WBC 5.82 (4.8-10.8) 10^3/uL RBC 4.30 L (4.70-6.10) 10^6/uL Hgb 11.7 L (14.0-18.0) g/dL Hct 35.6 L (42.0-52.0) % MCV 82.8 (80-90) FL MCH 27.2 (27-31) PG MCHC 32.9 L (33-37) g/dL RDW Std Deviation 39.2 (39-50) fL RDW Coeff of Sammy 13.3 (11.5-14.5) % Plt Count 172 (140-350) 10*3/uL MPV 10.2 (7.4-12.2) FL Immature Gran % (Auto) 0.3 (0-5) % Neut % (Auto) 60.3 (50-80) % Lymph % (Auto) 25.8 (10-50) % Sebastian % (Auto) 11.9 (5-15) % Eos % (Auto) 1.0 (0-8) % Baso % (Auto) 0.7 (0-1) % Immature Gran # (Auto) 0.02 10*3/UL Neut # (Auto) 3.51 10*3/UL Lymph # (Auto) 1.50 10*3/uL Sebastian # (Auto) 0.69 (0.3-0.8) 10*3/UL Eos # (Auto) 0.06 10*3/UL Baso # (Auto) 0.04 10*3/UL Neutrophils % (Manual) (50-80) % Band Neutrophils % (0-10) % Lymphocytes % (Manual) (10-50) % Monocytes % (Manual) (0-12) % Eosinophils % (Manual) (0-8) % Basophils % (Manual) (0-1) % Metamyelocytes % % Myelocytes % % Promyelocytes % % Blast Cells (0-1) % WBC Morphology Comment Normal morphology (NORM) Plt Morphology Comment Normal morphology (NORM) RBC Morph Comment Normal morphology (NORM) D-Dimer (0.00-0.59) mg/L Sodium 139 138 140 (135-145) meq/L Potassium 3.7 L 3.6 L 3.9 (3.8-5.2) meq/L Chloride 108 107 105 (98-112) meq/L Carbon Dioxide 24 25 27 (23-33) meq/L Anion Gap 7 6 8 (5-20) BUN 8 6 L 11 (7-22) mg/dL Creatinine 0.9 0.8 1.0 (0.70-1.50) mg/dL Estimated GFR > 60 > 60 > 60 (>60 ml/min/1.73m(2)) BUN/Creatinine Ratio 8.88 7.50 11.00 (6-20) Glucose 166 H 101 103 (78-110) mg/dL Calculated Osmolality 289.0 283.0 288.0 (267-292) mOsm/kg Calcium 7.6 L 7.8 L 8.9 (8.7-10.7) mg/dL Magnesium (1.6-2.4) mg/dL Total Bilirubin 0.2 L 0.6 (0.3-1.2) mg/dL AST 26 34 (21-57) IU/L ALT 48 53 (21-72) IU/L Alkaline Phosphatase 71 96 (38-126) IU/L Total Creatine Kinase (55-170) IU/L CK-MB (CK-2) (0.00-5.00) NG/ML Troponin I (< 0.040) ng/mL C-Reactive Protein (0.0-0.9) mg/dL NT-Pro-B Natriuret Pep (0-450) PG/ML Total Protein 5.5 L 6.1 (6.1-8.0) g/dL Albumin 3.2 L 3.6 (3.5-4.8) g/dL Globulin 2.3 L 2.5 (2.50-4.10) g/dL Albumin/Globulin Ratio 1.30 1.40 (1.3-2.0) mg/g TSH (0.2700-4.2000) uIU/mL Free T4 (0.93-1.71) ng/dL Discharge instruction Diet regular Activity as started Medications Home Medications Aspirin [Patti Advanced] 500 mg PO PRN PRN 09/12/16 [History Confirmed 09/12/16] Aspirin/Sod Bicarb/Citric Acid [Nahed Original Tab Eff] 1 each PO PRN PRN 09/12/16 [History Confirmed 09/12/16] Atorvastatin Calcium 20 mg PO DAILY 09/12/16 [History Confirmed 09/12/16] Dimenhydrinate [Dramamine] 50 mg PO PRN PRN 09/12/16 [History Confirmed 09/12/16 ] Diphenhydra/Phenyleph/Acetamin [Benadryl Allergy-Sinus Cplt] 1 each PO PRN PRN 09/12/16 [History Confirmed 09/12/16] Fluticasone Nasal [place] 0.05% [Flonase Nasal [place] 0.05%] 1 sprays NASAL DAILY 09/12/16 [History Confirmed 09/12/16] Omeprazole Magnesium 20 mg PO DAILY 09/12/16 [History Confirmed 09/12/16] Tamsulosin HCl [Flomax] 0.4 mg PO DAILY 09/12/16 [History Confirmed 09/12/16] Amox Tr/Potassium Clavulanate [Augmentin 875-125 Tablet] 1 each PO BID #20 tablet 09/14/16 [Rx] Potassium Chloride [Klor-Con] 20 meq PO DAILY #5 tab 09/15/16 [Rx] Follow-up with PCP 1C back home Condition at discharge was stable for discharge Exam - Vitals Vital Signs: Vital Signs Temperature 97.8 F Temperature Source Temporal Artery Scan Pulse Rate [Pulse Oximeter] 69 Pulse Rate [Telemetry] 93 Pulse Rate 72 Respiratory Rate 20 Blood Pressure [Left Arm] 145/77 Pulse Ox 93 Oxygen Flow Rate 1.5 Oxygen Delivery Method Room Air Height 5 ft 6 in Weight 141 lb 3.2 oz - General General Appearance: POSITIVE: No Acute Distress, Cooperative, Thin - Head Head Exam: POSITIVE: Normal Inspection, Atraumatic - Eye Eye Exam: POSITIVE: Normal Appearance, No Scleral Icterus - ENT ENT Exam: POSITIVE: Normal Exam Additonal ENT Exam Details: Minimal tenderness in the left maxillary area - Neck Neck Exam: POSITIVE: Normal Inspection - Respiratory Respiratory Exam: POSITIVE: Clear to Auscultation - Bilaterally - Cardiovascular Cardiovascular Exam: POSITIVE: RRR - GI/Abdominal GI/Abdominal Exam: POSITIVE: Normal Bowel Sounds, Non Tender, Non Distended, Soft - Rectal Rectal Exam: POSITIVE: Deferred - External Exam: POSITIVE: Deferred - Extremities Extremities Exam: POSITIVE: Normal Inspection - Back Back Exam: POSITIVE: Normal Inspection - Neurological Neurological Exam: POSITIVE: Alert, Oriented x 3, Normal Gait, CN II-XII Intact , Speech Intact / Clear, Moves All Extremities Equally - Psychiatric Psychiatric Exam: POSITIVE: Normal Affect - Integumentary Integumentary Exam: POSITIVE: Normal Color
== END 2016-09-15 09:03 | disposition home or self-care (01) | DRG 312 ==
LOC: ER 12:33 → MED/SURG 15:36
PROVIDERS: ADMIT Internal Medicine; ATTEND Internal Medicine
DX: R56.9 Unspecified convulsions (principal); R55 Syncope and collapse; E87.0 Hyperosmolality and hypernatremia; E87.2 Acidosis; E87.6 Hypokalemia; K21.9 Gastro-esophageal reflux disease without esophagitis; E78.00 Pure hypercholesterolemia, unspecified; E86.0 Dehydration; M54.2 Cervicalgia
CPT/HCPCS: 36415; 70450; 71275; 72141; 72146; 80048; 80053; 82550; 82553; 83735; 83880; 84439; 84443; 84484; 85007; 85025; 85379; 86140; 93005; 93010; 93306; 96360; 96361; 99284; J0696; J1650; J2060; J7030; J7050; J7060